=== PATIENT | female | born 1990 | race Caucasian/White ===

== ENCOUNTER 2018-04-16 08:06 | Day surgery (SDC) | payer OTHER ==
[2018-04-16 09:36] LABS: INTERNATIONAL RATION (INR) 0.98; PROTHROMBIN TIME 13.4 SEC (11.4-15.4)
[2018-04-16 09:37] LABS: PARTIAL THROMBOPLASTIN TIME 32.3 SEC (23.5-35.8)
--- NOTE | 2018-04-16 11:08 | RADIOLOGY REPORT (SQ) ---
EXAM DESCRIPTION: LUMBAR PUNCTURE; FLUORO/NEEDLE PLACEMENT/SPINE COMPLETED DATE/TIME: 04/16/2018 10:53 am; 04/16/2018 10:54 am REASON FOR STUDY: BENIGN INTRACRANIAL HYPERTENSION G93.2 BENIGN INTRACRANIAL HYPERTENSION COMPARISON: None. FLUOROSCOPY TIME: 20 seconds 1 digital radiographic images saved to PACS. TECHNIQUE: Fluoroscopic guided lumbar puncture. LIMITATIONS: None. PROCEDURE: After written consent and assessment were obtained, the patient was brought into the fluo roscopy room and placed prone on the table. The patient's lower back was prepped in a sterile fashio n and an entry site was selected under live fluoroscopic guidance. The entry site was anesthetized wi th 3 mL of 1% lidocaine. A 20 gauge spinal needle was advanced through the skin and into the thecal s ac at the right paracentral L2-3 level. After approximately 21 ml was drained, the needle was remove d and a sterile bandage was placed of the site. Specimens were sent to the lab for testing. A fluor oscopic spot image was saved to PACS confirming level access. FINDINGS: Clear CSF, opening pressure 53 cm of water, closing pressure 23 cm of water. A large volume lumbar puncture was performed with 21 mL of fluid withdrawn from the spinal canal unde r gravity. Patient was instructed to pay close attention to the right eye visual acuity over the nex t 24 hours, to see if it improves with decrease in intracranial pressure. IMPRESSION: Lumbar puncture under fluoroscopy. No immediate complication. COMMENT: Patient medication list reviewed: Yes- Quality ID# [id number]:Eligible professional attests to doc umenting in the medical record they obtained, updated, or reviewed the patient's current medications. . Quality ID 145: Final reports for procedures using fluoroscopy that document radiation exposure bisi calvin, or exposure time and number of fluorographic images (if radiation exposure indices are not avail able) TECHNICAL DOCUMENTATION: JOB ID: [id number] [employer]- All Rights Reserved Reading location - IP/workstation name: [id number]
--- NOTE | 2018-04-16 11:08 | RADIOLOGY REPORT (SQ) ---
EXAM DESCRIPTION: LUMBAR PUNCTURE; FLUORO/NEEDLE PLACEMENT/SPINE COMPLETED DATE/TIME: 04/16/2018 10:53 am; 04/16/2018 10:54 am REASON FOR STUDY: BENIGN INTRACRANIAL HYPERTENSION G93.2 BENIGN INTRACRANIAL HYPERTENSION COMPARISON: None. FLUOROSCOPY TIME: 20 seconds 1 digital radiographic images saved to PACS. TECHNIQUE: Fluoroscopic guided lumbar puncture. LIMITATIONS: None. PROCEDURE: After written consent and assessment were obtained, the patient was brought into the fluo roscopy room and placed prone on the table. The patient's lower back was prepped in a sterile fashio n and an entry site was selected under live fluoroscopic guidance. The entry site was anesthetized wi th 3 mL of 1% lidocaine. A 20 gauge spinal needle was advanced through the skin and into the thecal s ac at the right paracentral L2-3 level. After approximately 21 ml was drained, the needle was remove d and a sterile bandage was placed of the site. Specimens were sent to the lab for testing. A fluor oscopic spot image was saved to PACS confirming level access. FINDINGS: Clear CSF, opening pressure 53 cm of water, closing pressure 23 cm of water. A large volume lumbar puncture was performed with 21 mL of fluid withdrawn from the spinal canal unde r gravity. Patient was instructed to pay close attention to the right eye visual acuity over the nex t 24 hours, to see if it improves with decrease in intracranial pressure. IMPRESSION: Lumbar puncture under fluoroscopy. No immediate complication. COMMENT: Patient medication list reviewed: Yes- Quality ID# [id number]:Eligible professional attests to doc umenting in the medical record they obtained, updated, or reviewed the patient's current medications. . Quality ID 145: Final reports for procedures using fluoroscopy that document radiation exposure bisi calvin, or exposure time and number of fluorographic images (if radiation exposure indices are not avail able) TECHNICAL DOCUMENTATION: JOB ID: [id number] [employer]- All Rights Reserved Reading location - IP/workstation name: [id number]
[2018-04-16 11:34] LABS: GLUCOSE,CSF 55 mg/dL (40-70); PROTEIN,CSF 19 mg/dL (12-60)
[2018-04-16 11:36] LABS: APPEARANCE ALL TUBES CLEAR; COLOR ALL TUBES COLORLESS; CSF TUBE NUMBER 3; RED BLOOD CELL,CSF 0 /uL (0-10); VOLUME TUBE 2 5.5 CC; VOLUME TUBE 3 5.5 CC
[2018-04-16 11:37] LABS: WHITE BLOOD CELL,CSF 1 /uL (0-5)
[2018-04-16] MEDS ORDERED: ACETAMINOPHEN 325 MG TABLET ONE (11:49)
[2018-04-16 13:03] VITALS: BP 112/63
[2018-04-18 15:38] LABS: ALBUMIN SERUM 4.3 g/dL (3.5-5.5); CSF IGG INDEX 0.5 (0.0-0.7); IGG SYNTHESIS RATE CSF -3.1 mg/day (-9.9 TO +3); IGG/ALBUMIN RATIO CSF 0.13 (0.00-0.25); IMMUNOGLOBULIN G CSF 1.6 mg/dL (0.0-8.6)
== END 2018-04-16 13:00 | disposition home or self-care (01) ==
LOC: RAD 08:06
PROVIDERS: ATTEND Specialist
DX: G93.2 Benign intracranial hypertension (principal); E66.9 Obesity, unspecified; Z68.35 Body mass index [BMI] 35.0-35.9, adult; Z79.899 Other long term (current) drug therapy; F17.210 Nicotine dependence, cigarettes, uncomplicated
CPT/HCPCS: 36415; 62270; 77003; 82784; 82945; 84157; 85610; 85730; 87070; 87205; 89050